=== PATIENT | male | born 1980 | race Caucasian/White ===

== ENCOUNTER 2017-06-13 10:42 | Emergency (ER) | payer SELFPAY ==
[2017-06-13] MEDS ORDERED: NA CHLORIDE 0.9% 1,000 ML ONE (12:03)
[2017-06-13 12:30] LABS: Absolute Lymphocytes (CBC) 2.1 K/uL (0.7-4.9); Absolute Monocytes 0.9 K/uL (0.1-1.3); Absolute Neutrophil 5.1 K/uL (1.8-8.0); Basophils % 0.5 % (0-1.3); Eosinophils % 1.1 % (0-4.4); Hematocrit 42.3 % (39.6-49.0); Lymphocytes % 25.9 % (15.3-44.8); MCV 82.5 fL (80-100); MPV 7.9 fL (7.6-11.3); Monocytes % 10.4 % (3.3-12.3); RBC Red Blood Cell Count 5.13 M/uL (4.33-5.43)
[2017-06-13 12:31] LABS: Bicarbonate 26 mEq/L (21-31); Glucose Level 94 mg/dL (65-120); Lipase 15 U/L (22-51); Potassium 4.2 mEq/L (3.6-5.0); Sodium Level 137 mEq/L (135-145)
[2017-06-13 12:37] LABS: ALT/SGPT 40 IU/L (10-60); AST/SGOT 31 IU/L (10-42); Albumin 4.6 g/dL (3.2-5.5); Alkaline Phosphatase 52 IU/L (42-121); Amylase Level 23 U/L (28-100); BUN Blood Urea Nitrogen 14 mg/dL (6-20); Bilirubin Direct 0.1 mg/dL (0-0.2); Bilirubin Total 0.6 mg/dL (0.3-1.2); Glomerular Filtration Rate > 90 mL/min (=/>90); Protein, Total 7.5 g/dL (6.0-8.3)
[2017-06-13 14:05] LABS: Urine Blood NEGATIVE (NEG); Urine Glucose NEGATIVE (NEG); Urine Protein NEGATIVE (NEG); Urine Specific Gravity 1.015 (1.005-1.030)
--- NOTE | 2017-06-13 14:22 | RAD REPORT ---
EXAM DESCRIPTION: CT - Abdomen Pelvis W Contrast - 06/13/2017 2:06 pm CLINICAL HISTORY: Persistent abdominal pain COMPARISON: CT study October 2012 TECHNIQUE: Biphasic, helical CT imaging of the abdomen and pelvis was performed following 100 ml non -ionic IV contrast. No oral contrast administered. All CT scans are performed using dose optimization technique as appropriate and may include automated exposure control or mA/KV adjustment according to patient size. FINDINGS: No suspicious findings in the lung bases. The liver, spleen, and pancreas show no suspicious findings. Gallbladder and biliary tree are also wi thout suspicious finding. Symmetric renal function is seen with no hydronephrosis or suspicious renal mass. No pyelonephritis o r acute renal parenchymal process. No bladder abnormality. No adrenal gland abnormality. No dilated bowel loops or bowel wall thickening. No appendicitis. No free air, free fluid or inflamma tory stranding. No hernia, mass or bulky lymphadenopathy. No suspicious bony findings. IMPRESSION: Contrast enhanced CT abdomen and pelvis showing no significant or suspicious finding.
--- NOTE | 2017-06-13 14:43 | ER ---
Nurse's Notes [facility] Name: Yobany Nava Age: 37 yrs Sex: Male : 1980 Arrival Date: 06/13/2017 Time: 10:46 Bed 16 Private MD: Diagnosis: Noninfective gastroenteritis and colitis, unspecified Presentation: 06/13 11:06 Presenting complaint: Patient states: generalized abd pain x [address] Tamez last ss who ordered for a CT, but pain is worsening and labs have not resulted yet. pt also c/o N/V/D. Transition of care: patient was not received from another setting of care. Onset of symptoms was June 06, 2017. Care prior to arrival: None. 11:06 Method Of Arrival: Ambulatory ss 11:06 Acuity: CL 3 ss Historical: - Allergies: 11:09 No Known Allergies; ss - Home Meds: 11:15 None [Active]; rb1 - PMHx: 11:09 Hypertension; ss - PSHx: 11:09 I\T\D; ss - Immunization history:: Adult Immunizations up to date. - Social history:: Smoking status: Patient uses tobacco products, chewing tobacco. Screenin:12 Abuse screen: Denies threats or abuse. Nutritional screening: No deficits noted. rb1 Tuberculosis screening: No symptoms or risk factors identified. Fall Risk None identified. Assessment: 11:12 General: Appears uncomfortable, obese, Behavior is calm, cooperative. Pain: Complains rb1 of pain in abdomen Pain currently is 10 out of 10 on a pain scale. Pain began x 1 week. Neuro: Level of Consciousness is awake, alert, obeys commands, Oriented to person, place, time, situation. Cardiovascular: Capillary refill < 3 seconds is brisk in bilateral fingers. Respiratory: Airway is patent Respiratory effort is even, unlabored, Respiratory pattern is regular, symmetrical. GI: Bowel sounds present X 4 quads. Abd is soft Abdomen is tender to palpation in right upper quadrant and left upper quadrant Reports bloody stool. : No signs and/or symptoms were reported regarding the genitourinary system. Derm: Skin is pink, warm \T\ dry. 12:13 Reassessment: Patient appears in no apparent distress at this time. No changes from rb1 previously documented assessment. 13:10 Reassessment: Patient appears in no apparent distress at this time. Patient and/or rb1 family updated on plan of care and expected duration. Pain level reassessed. Patient is alert, oriented x 3, equal unlabored respirations, skin warm/dry/pink. 14:00 Reassessment: Patient appears in no apparent distress at this time. No changes from rb1 previously documented assessment. at bedside. 14:40 Reassessment: Pt. and family requested to speak with someone in charge. I notified rb1 FLORESITA Curry and she went in to speak with the pt. and his family. Vital Signs: 11:09 BP 112 / 74; Pulse 86; Resp 16; Temp 97.6(O); Pulse Ox 98% on R/A; Weight 106.59 kg; ss Height 6 ft. 1 in. (185.42 cm); Pain 5/10; 12:00 BP 109 / 71; Pulse 50; Resp 17; Pulse Ox 96% on R/A; rb1 13:00 BP 112 / 78; Pulse 76; Resp 18; Pulse Ox 99% on R/A; rb1 14:00 BP 113 / 80; Pulse 91; Resp 16; Pulse Ox 99% ; rb1 11:09 Body Mass Index 31.00 (106.59 kg, 185.42 cm) ED Course: 10:46 Patient arrived in ED. sb2 10:59 Leah Shanks [facility]-C [facility]. kb 10:59 Param Joe MD is Attending Physician. kb 11:08 Triage completed. ss 11:09 Arm band placed on right wrist. ss 11:12 Patient has correct armband on for positive identification. Bed in low position. Call rb1 light in reach. Side rails up X 1. Pulse ox on. NIBP on. 11:39 Tika Cho, RN is Primary Nurse. rb1 11:45 Inserted saline lock: 22 gauge in right antecubital area, using aseptic technique. rb1 Blood collected. 14:05 CT Abd/Pelvis - W/Contrast In Process Unspecified. EDMS 15:00 No provider procedures requiring assistance completed. IV discontinued, intact, rb1 bleeding controlled, No redness/swelling at site. Pressure dressing applied. Administered Medications: 11:45 Drug: NS 0.9% 1000 ml Route: IV; Rate: 1000 ml; Site: right antecubital; rb1 12:47 Follow up: IV Status: Completed infusion rb1 Outcome: 14:43 Discharge ordered by . melany 15:00 Discharged to home with family. rb1 15:00 Condition: stable 15:00 Discharge instructions given to patient, Instructed on discharge instructions, follow up and referral plans. medication usage, Demonstrated understanding of instructions, follow-up care, medications, Prescriptions given X 2. 15:00 Discharged to home ambulatory. rb1 15:00 Patient left the ED. rb1 Signatures: Dispatcher [employer] EDNC Leah Shanks, EXTRUDING MACHINE OPERATOR-C EXTRUDING MACHINE OPERATOR-Antoinette Abarca RN RN Tika Cho RN RN rb1 Jennifer Collazo sb2 Corrections: (The following items were deleted from the chart) 15:11 15:09 Discharged to home ambulatory, rb1 rb1 15:14 15:11 Patient left the ED. rb1 rb1
--- NOTE | 2017-06-13 14:43 | EDPHYS ---
Physician Documentation [facility] Name: Yobany Nava Age: 37 yrs Sex: Male : 1980 Arrival Date: 06/13/2017 Time: 10:46 Bed 16 Private MD: ED Physician Param oJe HPI: 06/13 11:31 This 37 yrs old Male presents to ER via Ambulatory with complaints of kb Abdominal Pain. 11:31 The patient presents with abdominal pain that is diffuse. Onset: The symptoms/episode kb began/occurred last week. The symptoms radiate to back. Associated signs and symptoms: Pertinent positives: nausea, vomiting, and diarrhea. The symptoms are described as constant. Modifying factors: The symptoms are alleviated by nothing, the symptoms are aggravated by food. Severity of pain: At its worst the pain was moderate in the emergency department the pain is unchanged. The patient has not experienced similar symptoms in the past. The patient has been recently seen by a physician: a otr tanker truck driver, in the office, 1 week(s) ago, with similar presenting complaints, lab tests were done, still awaiting results. Historical: - Allergies: 11:09 No Known Allergies; ss - Home Meds: 11:15 None [Active]; rb1 - PMHx: 11:09 Hypertension; ss - PSHx: 11:09 I\T\D; ss - Immunization history:: Adult Immunizations up to date. - Social history:: Smoking status: Patient uses tobacco products, chewing tobacco. ROS: 11:31 Constitutional: Negative for fever, chills, and weight loss, Cardiovascular: Negative kb for chest pain, palpitations, and edema, Respiratory: Negative for shortness of breath, cough, wheezing, and pleuritic chest pain, Back: Negative for injury and pain, : Negative for injury, bleeding, discharge, and swelling, MS/Extremity: Negative for injury and deformity, Skin: Negative for injury, rash, and discoloration, Neuro: Negative for headache, weakness, numbness, tingling, and seizure. 11:31 Abdomen/GI: Positive for abdominal pain, nausea, vomiting, and diarrhea, Negative for constipation, abdominal cramps, abdominal distension, anorexia. Exam: 11:31 Constitutional: This is a well developed, well nourished patient who is awake, alert, kb and in no acute distress. Head/Face: Normocephalic, atraumatic. Chest/axilla: Normal chest wall appearance and motion. Nontender with no deformity. No lesions are appreciated. Cardiovascular: Regular rate and rhythm with a normal S1 and S2. No gallops, murmurs, or rubs. Normal PMI, no JVD. No pulse deficits. Respiratory: Lungs have equal breath sounds bilaterally, clear to auscultation and percussion. No rales, rhonchi or wheezes noted. No increased work of breathing, no retractions or nasal flaring. Abdomen/GI: Soft, non-tender, with normal bowel sounds. No distension or tympany. No guarding or rebound. No evidence of tenderness throughout. Back: No spinal tenderness. No costovertebral tenderness. Full range of motion. Skin: Warm, dry with normal turgor. Normal color with no rashes, no lesions, and no evidence of cellulitis. MS/ Extremity: Pulses equal, no cyanosis. Neurovascular intact. Full, normal range of motion. Neuro: Awake and alert, GCS 15, oriented to person, place, time, and situation. Cranial nerves II-XII grossly intact. Motor strength 5/5 in all extremities. Sensory grossly intact. Cerebellar exam normal. Normal gait. Vital Signs: 11:09 BP 112 / 74; Pulse 86; Resp 16; Temp 97.6(O); Pulse Ox 98% on R/A; Weight 106.59 kg; ss Height 6 ft. 1 in. (185.42 cm); Pain 5/10; 12:00 BP 109 / 71; Pulse 50; Resp 17; Pulse Ox 96% on R/A; rb1 13:00 BP 112 / 78; Pulse 76; Resp 18; Pulse Ox 99% on R/A; rb1 14:00 BP 113 / 80; Pulse 91; Resp 16; Pulse Ox 99% ; rb1 11:09 Body Mass Index 31.00 (106.59 kg, 185.42 cm) ss MDM: 11:13 Patient medically screened. kb 11:31 Data reviewed: vital signs, nurses notes. Data interpreted: Pulse oximetry: on room air kb is 98 %. Interpretation: normal. 14:42 Counseling: I had a detailed discussion with the patient and/or guardian regarding: the kb historical points, exam findings, and any diagnostic results supporting the discharge/admit diagnosis, lab results, radiology results, the need for outpatient follow up, a family practitioner, a otr tanker truck driver, to return to the emergency department if symptoms worsen or persist or if there are any questions or concerns that arise at home. 06/13 11:18 Order name: Amylase, Serum kb 06/13 11:18 Order name: Basic Metabolic Panel 06/13 11:18 Order name: CBC with Diff; Complete Time: 12:34 kb 06/13 11:18 Order name: Hepatic Function kb 06/13 11:18 Order name: Lipase; Complete Time: 12:38 kb 06/13 11:19 Order name: Amylase Level; Complete Time: 12:38 EDMS 06/13 11:18 Order name: IV Saline Lock; Complete Time: 12:49 kb 06/13 11:18 Order name: Labs collected and sent; Complete Time: 12:49 kb 06/13 11:18 Order name: Urine Dipstick-Ancillary (obtain specimen); Complete Time: 15:18 kb 06/13 11:19 Order name: Basic Metabolic Panel; Complete Time: 12:38 EDMS 06/13 11:19 Order name: Liver (Hepatic) Function; Complete Time: 12:38 EDMS 06/13 13:23 Order name: Urine Dipstick--Ancillary (enter results); Complete Time: 14:06 bd 06/13 13:32 Order name: CT Abd/Pelvis - W/Contrast; Complete Time: 14:26 kb Administered Medications: 11:45 Drug: NS 0.9% 1000 ml Route: IV; Rate: 1000 ml; Site: right antecubital; rb1 12:47 Follow up: IV Status: Completed infusion rb1 Disposition: 06/13/17 14:43 Discharged to Home. Impression: Noninfective gastroenteritis and colitis, unspecified. - Condition is Stable. - Discharge Instructions: Food Choices to Help Relieve Diarrhea, Adult, Viral Gastroenteritis. - Prescriptions for Bentyl 20 mg Oral Tablet - take 1 tablet by ORAL route every 6 hours As needed; 20 tablet. Zofran 4 mg Oral Tablet - take 1 tablet by ORAL route every 6 hours As needed; 20 tablet. - Medication Reconciliation Form, Thank You Letter, Antibiotic Education, Prescription Opioid Use, Work release form form. - Follow up: Emergency Department; When: As needed; Reason: Worsening of condition. Follow up: Private Physician; When: 2 - 3 days; Reason: Recheck today's complaints, Continuance of care, Re-evaluation by your physician. Addendum: 06/15/2017 06:14 Co-signature as Attending Physician, Param Joe MD. g s Signatures: Dispatcher [employer] Leah Seals, PUBLIC WORKS MANAGER-C PUBLIC WORKS MANAGER-Antoinette Abarca RN RN ss Barber, Rebecca, NGA SYLVESTER rb1 Param Joe MD MD
[2017-06-13 15:27] VITALS: TEMP 97.6
[2017-06-13 15:28] VITALS: BP 109/71; O2SAT 96
== END 2017-06-13 15:11 | disposition home or self-care (01) ==
LOC: ER 10:42
DX: K52.9 Noninfective gastroenteritis and colitis, unspecified (principal); I10 Essential (primary) hypertension; Z72.0 Tobacco use
CPT/HCPCS: 36415; 74177; 80048; 80076; 81003; 82150; 83690; 85025; 96360; 99284; J7030; Q9967

== ENCOUNTER 2021-09-06 07:01 | Day surgery (SDC) | payer BC ==
[2021-09-06] MEDS ORDERED: Ringers Lactate 1,000 ML IV ONE (07:34)
[2021-09-06] MEDS ORDERED: propofoL 200 MG/20 ML VIAL IV ONE ×3 (08:47→12:58)
[2021-09-06] MEDS ORDERED: LIDOCAINE 1% MPF 5 ML VIAL ONE ×2 (08:48→10:58)
[2021-09-06] MEDS ORDERED: MIDAZOLAM HCL 2 MG/2 ML INJ ONE (09:11)
[2021-09-06] MEDS ORDERED: FENTANYL CITR 100 MCG/2 ML ONE (09:28)
--- NOTE | 2021-09-06 09:59 | ENDO RPT ---
[address], [address] EGD PROCEDURE REPORT EXAM DATE: 09/06/2021 PATIENT NAME: Yobany Gunn MR#: [id number] BIRTHDATE: 1980 ATTENDING: Antolin Garza Dr STATUS: outpatient INDUSTRIAL RELATIONS MANAGER: Javier Foster RN INDICATIONS: The patient is a 41 yr old Male here for an EGD due to mid epigastric abdominal pain, left upper quadrant abdominal pain, right upper quadrant abdominal pain, nausea and vomiting, bloating, belching, dyspepsia, weight loss, and chronic unexplained diarrhea PROCEDURE PERFORMED: EGD with biopsy MEDICATIONS: Per Anesthesia. TOPICAL ANESTHETIC: none CONSENT: The patient understands the risks and benefits of the procedure and understands that these risks include, but are not limited to: sedation, allergic reaction, infection, perforation and/or bleeding. Alternative means of evaluation and treatment include, among others: physical exam, x-rays, and/or surgical intervention. The patient elects to proceed with this endoscopic procedure. DESCRIPTION OF PROCEDURE: During intra-op preparation period all mechanical medical equipment was checked for proper function. Hand hygiene and appropriate measures for infection prevention was taken. Procedure, possible complications, and alternatives including but not limited to the possibility of bleeding, perforation, tear, infection, sepsis, need for surgery, need for blood transfusion, and anesthesia related complications were explained to the patient. After the risks, benefits and alternatives of the procedure were thoroughly explained, Informed consent was verified, confirmed and timeout was successfully executed by the treatment team. The patient was placed in the left lateral position. The patient was anesthetized with topical anesthesia. Through the anesthetized oropharyngeal area, the scope was passed without any difficulty. The EC-3890Li ([id number]) and EG-[id number] ([id number]) endoscope was introduced through the mouth and advanced to the third portion of the duodenum. Retroflexed views revealed a small hiatal hernia. The gastroscope was then slowly withdrawn and removed. LA Class C esophagitis was found in the lower esophagus. An ulcer was found in the lower esophagus. A small hiatal hernia was found Mild Atrophic gastritis was found in the body and the antrum of the stomach. Multiple biopsies were obtained and sent to pathology. Small bowel biopsies obtained with history of chronic unexplained diarrhea. . ADVERSE EVENTS: There were no complications. IMPRESSIONS: 1. LA class C esophagitis in the lower esophagus 2. 3 mm clean-based ulcer in the lower esophagus 3. Small hiatal hernia 4. Mild atrophic gastritis in the body and the antrum of the stomach, s/p biopsies 5. Small bowel biopsies obtained with history of chronic unexplained diarrhea RECOMMENDATIONS: REPEAT EXAM: Antolin Garza Dr eSigned: Antolin Garza Dr 09/06/2021 9:58 AM cc: CPT CODES: ICD9 CODES: PATIENT NAME: Yobany Gunn MR#: [id number]
--- NOTE | 2021-09-06 10:16 | ENDO RPT ---
[address], [address] COLONOSCOPY PROCEDURE REPORT EXAM DATE: 09/06/2021 PATIENT NAME: Yobany Gunn MR #: [id number] BIRTHDATE: 1980 ATTENDING: Antolin Garza Dr STATUS: outpatient DEPARTMENT DIRECTOR: Javier Foster RN INDICATIONS: The patient is a 41 yr old Male here for a colonoscopy due to hematochezia, RLQ/LLQ/periumbilical abdominal pain, weight loss, change in bowel habits, and unexplained chronic diarrhea PROCEDURE PERFORMED: Colonoscopy with biopsy - cold polypectomy MEDICATIONS: Per Anesthesia. ESTIMATED BLOOD LOSS: None CONSENT: The patient understands the risks and benefits of the procedure and understands that these risks include, but are not limited to: sedation, allergic reaction, infection, perforation and/or bleeding. Alternative means of evaluation and treatment include, among others: physical exam, x-rays, and/or surgical intervention. The patient elects to proceed with this endoscopic procedure. DESCRIPTION OF PROCEDURE: During intra-op preparation period all mechanical medical equipment was checked for proper function. Hand hygiene and appropriate measures for infection prevention was taken. Procedure, possible complications, alternatives including, but not limited to possibility of bleeding, perforation, tear, infection, sepsis, need for surgery, need for blood transfusion, were explained to the patient. After the risks, benefits and alternatives of the procedure were thoroughly explained, Informed consent was verified, confirmed and timeout was successfully executed by the treatment team. The patient was placed in the left lateral position. A digital rectal exam was performed and revealed external hemorrhoids. After appropriate level of anesthesia, the scope was passed. The EC-3890Li ([id number]) and EG-[id number] ([id number]) endoscope was introduced through the anus and advanced to the terminal ileum which was intubated for a short distance. The quality of the prep was fair. The instrument was then slowly withdrawn as the colon was fully examined. Scope withdrawal time was 9 minutes. COLON FINDINGS: A smooth sessile polyp measuring 6 mm in size was found in the distal transverse colon. A polypectomy was performed with cold forceps. Moderate sized internal and external hemorrhoids were found. Retroflexed views revealed medium hemorrhoids. The scope was then completely withdrawn from the patient and the procedure terminated. ADVERSE EVENTS: There were no complications. IMPRESSIONS: 1. 6 mm sessile polyp in the distal transverse colon; polypectomy was performed with cold forceps 2. Moderate sized internal and external hemorrhoids 3. Intubation to terminal ileum RECOMMENDATIONS: 1. await biopsy results 2. avoid NSAIDS for 2 weeks RECALL: Return in 3 year(s) for Colonoscopy. Antolin Garza Dr eSigned: Antolin Garza Dr 09/06/2021 10:15 AM cc: CPT CODES: ICD9 CODES: PATIENT NAME: Yobany Gunn MR#: [id number]
--- NOTE | 2021-09-06 10:30 | ENDO RPT ---
[address], [address] EGD PROCEDURE REPORT EXAM DATE: 09/06/2021 PATIENT NAME: Yobany Gunn MR#: [id number] BIRTHDATE: 1980 ATTENDING: Antolin Garza Dr STATUS: outpatient LIFT TRUCK MECHANIC: Javier Foster RN INDICATIONS: The patient is a 41 yr old Male here for an EGD due to mid epigastric abdominal pain, left upper quadrant abdominal pain, right upper quadrant abdominal pain, nausea and vomiting, bloating, belching, dyspepsia, weight loss, and chronic unexplained diarrhea PROCEDURE PERFORMED: EGD with biopsy MEDICATIONS: Per Anesthesia. TOPICAL ANESTHETIC: none CONSENT: The patient understands the risks and benefits of the procedure and understands that these risks include, but are not limited to: sedation, allergic reaction, infection, perforation and/or bleeding. Alternative means of evaluation and treatment include, among others: physical exam, x-rays, and/or surgical intervention. The patient elects to proceed with this endoscopic procedure. DESCRIPTION OF PROCEDURE: During intra-op preparation period all mechanical medical equipment was checked for proper function. Hand hygiene and appropriate measures for infection prevention was taken. Procedure, possible complications, and alternatives including but not limited to the possibility of bleeding, perforation, tear, infection, sepsis, need for surgery, need for blood transfusion, and anesthesia related complications were explained to the patient. After the risks, benefits and alternatives of the procedure were thoroughly explained, Informed consent was verified, confirmed and timeout was successfully executed by the treatment team. The patient was placed in the left lateral position. The patient was anesthetized with topical anesthesia. Through the anesthetized oropharyngeal area, the scope was passed without any difficulty. The EC-3890Li ([id number]) and EG-[id number] ([id number]) endoscope was introduced through the mouth and advanced to the third portion of the duodenum. Retroflexed views revealed a small hiatal hernia. The gastroscope was then slowly withdrawn and removed. LA Class C esophagitis was found in the lower esophagus. An ulcer was found in the lower esophagus. A small hiatal hernia was found Mild Atrophic gastritis was found in the body and the antrum of the stomach. Multiple biopsies were obtained and sent to pathology. Small bowel biopsies obtained with history of chronic unexplained diarrhea. . ADVERSE EVENTS: There were no complications. IMPRESSIONS: 1. LA class C esophagitis in the lower esophagus 2. 3 mm clean-based ulcer in the lower esophagus 3. Small hiatal hernia 4. Mild atrophic gastritis in the body and the antrum of the stomach, s/p biopsies 5. Small bowel biopsies obtained with history of chronic unexplained diarrhea RECOMMENDATIONS: 1. await biopsy results 2. acid suppression therapy REPEAT EXAM: Antolin Garza Dr eSigned: Antolin Garza Dr 09/06/2021 10:29 AM Revised: 09/06/2021 10:29 AM cc: Antolin Hernandez CPT CODES: ICD9 CODES: PATIENT NAME: Yobany Gunn MR#: [id number]
--- NOTE | 2021-09-06 10:31 | ENDO RPT ---
[address], [address] COLONOSCOPY PROCEDURE REPORT EXAM DATE: 09/06/2021 PATIENT NAME: Yobany Gunn MR #: [id number] BIRTHDATE: 1980 ATTENDING: Antolin Garza Dr STATUS: outpatient TROLLEY OPERATOR: Javier Foster RN INDICATIONS: The patient is a 41 yr old Male here for a colonoscopy due to hematochezia, RLQ/LLQ/periumbilical abdominal pain, weight loss, change in bowel habits, and unexplained chronic diarrhea PROCEDURE PERFORMED: Colonoscopy with biopsy - cold polypectomy MEDICATIONS: Per Anesthesia. ESTIMATED BLOOD LOSS: None CONSENT: The patient understands the risks and benefits of the procedure and understands that these risks include, but are not limited to: sedation, allergic reaction, infection, perforation and/or bleeding. Alternative means of evaluation and treatment include, among others: physical exam, x-rays, and/or surgical intervention. The patient elects to proceed with this endoscopic procedure. DESCRIPTION OF PROCEDURE: During intra-op preparation period all mechanical medical equipment was checked for proper function. Hand hygiene and appropriate measures for infection prevention was taken. Procedure, possible complications, alternatives including, but not limited to possibility of bleeding, perforation, tear, infection, sepsis, need for surgery, need for blood transfusion, were explained to the patient. After the risks, benefits and alternatives of the procedure were thoroughly explained, Informed consent was verified, confirmed and timeout was successfully executed by the treatment team. The patient was placed in the left lateral position. A digital rectal exam was performed and revealed external hemorrhoids. After appropriate level of anesthesia, the scope was passed. The EC-3890Li ([id number]) and EG-[id number] ([id number]) endoscope was introduced through the anus and advanced to the terminal ileum which was intubated for a short distance. The quality of the prep was fair. The instrument was then slowly withdrawn as the colon was fully examined. Scope withdrawal time was 9 minutes. COLON FINDINGS: A smooth sessile polyp measuring 6 mm in size was found in the distal transverse colon. A polypectomy was performed with cold forceps. Moderate sized internal and external hemorrhoids were found. Retroflexed views revealed medium hemorrhoids. The scope was then completely withdrawn from the patient and the procedure terminated. ADVERSE EVENTS: There were no complications. IMPRESSIONS: 1. 6 mm sessile polyp in the distal transverse colon; polypectomy was performed with cold forceps 2. Moderate sized internal and external hemorrhoids 3. Intubation to terminal ileum RECOMMENDATIONS: 1. await biopsy results 2. avoid NSAIDS for 2 weeks RECALL: Return in 3 year(s) for Colonoscopy. Antolin Garza Dr eSigned: Antolin Garza Dr 09/06/2021 10:30 AM Revised: 09/06/2021 10:30 AM cc: Antolin Hernandez CPT CODES: ICD9 CODES: PATIENT NAME: Yobany Gunn MR#: [id number]
--- NOTE | 2021-09-06 10:52 | ENDO RPT ---
[address], [address] EGD PROCEDURE REPORT EXAM DATE: 09/06/2021 PATIENT NAME: Yobany Gunn MR#: [id number] BIRTHDATE: 1980 ATTENDING: Antolin Garza Dr STATUS: outpatient CALL OUT OPERATOR: Javier Foster RN INDICATIONS: The patient is a 41 yr old Male here for an EGD due to mid epigastric abdominal pain, left upper quadrant abdominal pain, right upper quadrant abdominal pain, nausea and vomiting, bloating, belching, dyspepsia, weight loss, and chronic unexplained diarrhea PROCEDURE PERFORMED: EGD with biopsy MEDICATIONS: Per Anesthesia. TOPICAL ANESTHETIC: none CONSENT: The patient understands the risks and benefits of the procedure and understands that these risks include, but are not limited to: sedation, allergic reaction, infection, perforation and/or bleeding. Alternative means of evaluation and treatment include, among others: physical exam, x-rays, and/or surgical intervention. The patient elects to proceed with this endoscopic procedure. DESCRIPTION OF PROCEDURE: During intra-op preparation period all mechanical medical equipment was checked for proper function. Hand hygiene and appropriate measures for infection prevention was taken. Procedure, possible complications, and alternatives including but not limited to the possibility of bleeding, perforation, tear, infection, sepsis, need for surgery, need for blood transfusion, and anesthesia related complications were explained to the patient. After the risks, benefits and alternatives of the procedure were thoroughly explained, Informed consent was verified, confirmed and timeout was successfully executed by the treatment team. The patient was placed in the left lateral position. The patient was anesthetized with topical anesthesia. Through the anesthetized oropharyngeal area, the scope was passed without any difficulty. The EC-3890Li ([id number]) and EG-[id number] ([id number]) endoscope was introduced through the mouth and advanced to the third portion of the duodenum. Retroflexed views revealed a small hiatal hernia. The gastroscope was then slowly withdrawn and removed. LA Class C esophagitis was found in the lower esophagus. An ulcer was found in the lower esophagus. A small hiatal hernia was found Mild Atrophic gastritis was found in the body and the antrum of the stomach. Multiple biopsies were obtained and sent to pathology. Small bowel biopsies obtained with history of chronic unexplained diarrhea. . ADVERSE EVENTS: There were no complications. IMPRESSIONS: 1. LA class C esophagitis in the lower esophagus 2. 3 mm clean-based ulcer in the lower esophagus 3. Small hiatal hernia 4. Mild atrophic gastritis in the body and the antrum of the stomach, s/p biopsies 5. Small bowel biopsies obtained with history of chronic unexplained diarrhea RECOMMENDATIONS: 1. await biopsy results 2. acid suppression therapy REPEAT EXAM: Antolin Garza Dr eSigned: Antolin Garza Dr 09/06/2021 10:51 AM Revised: 09/06/2021 10:51 AM cc: Antolin Hernandez CPT CODES: ICD9 CODES: PATIENT NAME: Yobany Gunn MR#: [id number]
--- NOTE | 2021-09-06 10:53 | ENDO RPT ---
[address], [address] COLONOSCOPY PROCEDURE REPORT EXAM DATE: 09/06/2021 PATIENT NAME: Yobany Gunn MR #: [id number] BIRTHDATE: 1980 ATTENDING: Antolin Garza Dr STATUS: outpatient BEAN SNAPPER: Javier Foster RN INDICATIONS: The patient is a 41 yr old Male here for a colonoscopy due to hematochezia, RLQ/LLQ/periumbilical abdominal pain, weight loss, change in bowel habits, and unexplained chronic diarrhea PROCEDURE PERFORMED: Colonoscopy with biopsy - cold polypectomy MEDICATIONS: Per Anesthesia. ESTIMATED BLOOD LOSS: None CONSENT: The patient understands the risks and benefits of the procedure and understands that these risks include, but are not limited to: sedation, allergic reaction, infection, perforation and/or bleeding. Alternative means of evaluation and treatment include, among others: physical exam, x-rays, and/or surgical intervention. The patient elects to proceed with this endoscopic procedure. DESCRIPTION OF PROCEDURE: During intra-op preparation period all mechanical medical equipment was checked for proper function. Hand hygiene and appropriate measures for infection prevention was taken. Procedure, possible complications, alternatives including, but not limited to possibility of bleeding, perforation, tear, infection, sepsis, need for surgery, need for blood transfusion, were explained to the patient. After the risks, benefits and alternatives of the procedure were thoroughly explained, Informed consent was verified, confirmed and timeout was successfully executed by the treatment team. The patient was placed in the left lateral position. A digital rectal exam was performed and revealed external hemorrhoids. After appropriate level of anesthesia, the scope was passed. The EC-3890Li ([id number]) and EG-[id number] ([id number]) endoscope was introduced through the anus and advanced to the terminal ileum which was intubated for a short distance. The quality of the prep was fair. The instrument was then slowly withdrawn as the colon was fully examined. Scope withdrawal time was 9 minutes. COLON FINDINGS: A smooth sessile polyp measuring 6 mm in size was found in the distal transverse colon. A polypectomy was performed with cold forceps. Random biopsies of the colon / rectum obtained with history of chronic unexplained diarrhea. Moderate sized internal and external hemorrhoids were found. Retroflexed views revealed medium hemorrhoids. The scope was then completely withdrawn from the patient and the procedure terminated. ADVERSE EVENTS: There were no complications. IMPRESSIONS: 1. 6 mm sessile polyp in the distal transverse colon; polypectomy was performed with cold forceps 2. Moderate sized internal and external hemorrhoids 3. Intubation to terminal ileum RECOMMENDATIONS: 1. await biopsy results 2. avoid NSAIDS for 2 weeks RECALL: Return in 3 year(s) for Colonoscopy. Antolin Garza Dr eSigned: Antolin Garza Dr 09/06/2021 10:53 AM Revised: 09/06/2021 10:53 AM cc: Antolin Hernandez CPT CODES: ICD9 CODES: PATIENT NAME: Yobany Gunn MR#: [id number]
--- NOTE | 2021-09-06 11:14 | ENDO RPT ---
[address], [address] COLONOSCOPY PROCEDURE REPORT EXAM DATE: 09/06/2021 PATIENT NAME: Yobany Gunn MR #: [id number] BIRTHDATE: 1980 ATTENDING: Antolin Garza Dr STATUS: outpatient HATCH BOSS: Javier Foster RN INDICATIONS: The patient is a 41 yr old Male here for a colonoscopy due to hematochezia, RLQ/LLQ/periumbilical abdominal pain, weight loss, change in bowel habits, and unexplained chronic diarrhea PROCEDURE PERFORMED: Colonoscopy with biopsy - cold polypectomy MEDICATIONS: Per Anesthesia. ESTIMATED BLOOD LOSS: None CONSENT: The patient understands the risks and benefits of the procedure and understands that these risks include, but are not limited to: sedation, allergic reaction, infection, perforation and/or bleeding. Alternative means of evaluation and treatment include, among others: physical exam, x-rays, and/or surgical intervention. The patient elects to proceed with this endoscopic procedure. DESCRIPTION OF PROCEDURE: During intra-op preparation period all mechanical medical equipment was checked for proper function. Hand hygiene and appropriate measures for infection prevention was taken. Procedure, possible complications, alternatives including, but not limited to possibility of bleeding, perforation, tear, infection, sepsis, need for surgery, need for blood transfusion, were explained to the patient. After the risks, benefits and alternatives of the procedure were thoroughly explained, Informed consent was verified, confirmed and timeout was successfully executed by the treatment team. The patient was placed in the left lateral position. A digital rectal exam was performed and revealed external hemorrhoids. After appropriate level of anesthesia, the scope was passed. The EC-3890Li ([id number]) and EG-2990i ([id number]) endoscope was introduced through the anus and advanced to the terminal ileum which was intubated for a short distance. The quality of the prep was fair. The instrument was then slowly withdrawn as the colon was fully examined. Scope withdrawal time was 9 minutes. COLON FINDINGS: A smooth sessile polyp measuring 6 mm in size was found in the distal transverse colon. A polypectomy was performed with cold forceps. Random biopsies of the terminal ileum / right colon / left colon / rectum obtained with history of chronic unexplained diarrhea. Moderate sized internal and external hemorrhoids were found. Retroflexed views revealed medium hemorrhoids. The scope was then completely withdrawn from the patient and the procedure terminated. ADVERSE EVENTS: There were no complications. IMPRESSIONS: 1. 6 mm sessile polyp in the distal transverse colon; polypectomy was performed with cold forceps 2. Random biopsies of the terminal ileum / right colon / left colon / rectum obtained with history of chronic unexplained diarrhea 3. Moderate sized internal and external hemorrhoids 4. Intubation to terminal ileum RECOMMENDATIONS: 1. await biopsy results 2. avoid NSAIDS for 2 weeks RECALL: Return in 3 year(s) for Colonoscopy. Antolin Garza Dr eSigned: Antolin Garza Dr 09/06/2021 11:13 AM Revised: 09/06/2021 11:13 AM cc: Antolin Hernandez CPT CODES: ICD9 CODES: PATIENT NAME: Yobany Gunn MR#: [id number]
[2021-09-06 12:10] VITALS: TEMP 97.5
[2021-09-06 12:11] VITALS: O2SAT 100
[2021-09-06 12:13] VITALS: BP 130/62
== END 2021-09-06 11:50 | disposition home or self-care (01) ==
LOC: OR 07:01
PROVIDERS: ATTEND Internal Medicine Gastroenterology
PROC: 0DBF8ZX Excision of Right Large Intestine, Via Natural or Artificial Opening Endoscopic, Diagnostic (ICD-10-PCS; 2021-09-06)
PROC: 0DBG8ZX Excision of Left Large Intestine, Via Natural or Artificial Opening Endoscopic, Diagnostic (ICD-10-PCS; 2021-09-06)
PROC: 0DBB8ZX Excision of Ileum, Via Natural or Artificial Opening Endoscopic, Diagnostic (ICD-10-PCS; principal; 2021-09-06 08:15)
PROC: 0DBP8ZX Excision of Rectum, Via Natural or Artificial Opening Endoscopic, Diagnostic (ICD-10-PCS; 2021-09-06 08:15)
DX: R19.4 Change in bowel habit (principal); R19.7 Diarrhea, unspecified; K92.1 Melena; R10.10 Upper abdominal pain, unspecified; R10.13 Epigastric pain; R14.0 Abdominal distension (gaseous); R14.2 Eructation; Z20.822 Contact with and (suspected) exposure to COVID-19
CPT/HCPCS: 88312; 88305 ×2; 45380; U0003; J2704 ×3; J2250; J3010; J7120

== ENCOUNTER 2023-05-14 07:25 | Day surgery (SDC) | payer BC ==
--- NOTE | 2023-05-13 14:43 | EKG ---
Test Date: 2023-05-09 Test Time: 16:21:25 Golf Ball Inspector: CRISEDLA MEASUREMENT RESULTS: Intervals: Rate: 76 MT: 162 QRSD: 92 QT: 376 QTc: 423 [place]: P: 55 MT: 162 QRS: 63 T: -5 INTERPRETIVE STATEMENTS: Normal sinus rhythm Abnormal QRS-T angle, consider primary T wave abnormality Abnormal ECG No previous ECG available for comparison Electronically Signed On 05-13-23 14:31:53 ELEMENTARY ASSISTANT PRINCIPAL by Vernon Argueta
[2023-05-14] MEDS: Ringers Lactate 1,000 ML IV ONE (07:40)
[2023-05-14] MEDS ORDERED: propofoL 200 MG/20 ML VIAL IV ONE ×2 (08:26→09:03)
[2023-05-14] MEDS ORDERED: LIDOCAINE 1% MPF 5 ML VIAL ONE (08:26)
[2023-05-14 10:58] VITALS: BP 118/62; TEMP 98.1; O2SAT 100
== END 2023-05-14 10:27 | disposition home or self-care (01) ==
LOC: OR 07:25
PROVIDERS: ATTEND Internal Medicine Gastroenterology
PROC: 0DBE8ZX Excision of Large Intestine, Via Natural or Artificial Opening Endoscopic, Diagnostic (ICD-10-PCS; principal; 2023-05-14 08:30)
DX: K92.1 Melena (principal); R19.7 Diarrhea, unspecified; R10.9 Unspecified abdominal pain; K64.8 Other hemorrhoids; K64.4 Residual hemorrhoidal skin tags; Z86.010 Personal history of colon polyps
CPT/HCPCS: 93005; 88305; 45380; J2704 ×2; J2001; J7120

== ENCOUNTER → 2023-06-04 | Emergency (ER) | payer BC ==
[~2023-06-04] MED LIST: FAMOTIDINE 20 MG/2 ML VIAL IV ONE; KETOROLAC 30 MG/ML INJ ONE; MORPHINE 4 MG/ML SYR ONE; NA CHLORIDE 0.9% 1,000 ML ONE; ONDANSETRON 4 MG/2 ML VIAL ONE
--- OUTSIDE RECORDS SUMMARY | 2023-06-04 10:02 | XMS REPORT | Continuity of Care Document ---
Author Name Unknown Address [address] [facility] [address] [place] [address] [facility] thconnect Address [address] [facility]. [address] [place] [address] Care Team Providers Care Curtain Hemmer Automatic Name Role Phone Pcp, Patient Does Not Have A Primary Care Physic lesley ARINA BURROWS Attending Clinician Unavailable Arina Eli Attending Clinician Unknown, Attending Attending Clinician Unavailab le Doctor Unassigned, [place] Attending Clinician U navailOdette Estevez Attending Clinician Payers Payer Name Policy Type Policy Number Effective Date Expirati on Date Source [facility] [id number] 2021 00:00:00 Problems Condition Name Condition Details Condition Category Status Onset Date Resolution Date Last Treatment Date Treating Clinician Comments Source No known active problems No known active problems Disease [facility] Allergies, Adverse Reactions, Alerts Allergy Name Allergy Type Status Severity Reaction(s) Onset Date Inactive Date Treating Clinician Comments Source CLINDAMY MER DRUG INGREDI Active Unknown-Cmnt 04-17 00:00: 00 [facility] Clindamy mer Drug Allergy Active Unknown - See comments 04-17 00:00: 00 [facility] NO KNOWN ALLERGIE S Drug Class Active [facility] Social History Social Habit Start Date Stop Date Quantity Comments Source Exposure to SARS-CoV-2 (event) Not sure [facility] Sex Assigned At 1980 00:00:00 1980 00:00:00 [facility] Smoking Status Start Date Stop Date Source Tobacco smoking consumption unknown [facility] Medications Ordered Medication Name Filled Medication Name Start Date Stop Date Current Medication? Ordering Clinician Indication Dosage Frequency Signature (SIG) Comments Components Source maalox:diph enhydrAMINE :lidocaine 2 % viscous 1:1:1 ([facility]) oral suspension 15 mL 11-18 20:15: 00 11-18 20:07 :00 No 15mL 15 mL, Oral, ONCE, 1 dose, 11/18/20 at 1515, Routine [facility] benzonatate (TESSALON PERLES) capsule 100 mg 11-18 20:15: 00 11-18 20:07 :00 No 100mg 100 mg, Oral, ONCE, 1 dose, 11/18/20 at 1515, Routine [facility] albuterol (VENTOLIN) inhaler 6 Puff 11-18 20:15: 00 11-18 20:34 :00 No 6{puff} 6 Puff, Inhalation , ONCE, 1 dose, 11/18/20 at 1515, SAMANTHA [facility] maalox:diph enhydrAMINE :lidocaine 2 % viscous 1:1:1 ([facility]) oral suspension 15 mL 11-18 20:15: 00 11-18 20:07 :00 No 15mL 15 mL, Oral, ONCE, 1 dose, 11/18/20 at 1515, Routine [facility] benzonatate (TESSALON PERLES) capsule 100 mg 11-18 20:15: 00 11-18 20:07 :00 No 100mg 100 mg, Oral, ONCE, 1 dose, 11/18/20 at 1515, Routine [facility] albuterol (VENTOLIN) inhaler 6 Puff 11-18 20:15: 00 11-18 20:34 :00 No 6{puff} 6 Puff, Inhalation , ONCE, 1 dose, Sat11/18/20 at 1515, SAMANTHA [facility] benzonatate 100 mg capsule 11-18 00:00: 00 Yes [id number] 100mg Take 1 capsule by mouth 3 (three) times daily as needed for Cough. [facility] maalox:diph enhydrAMINE :lidocaine 2 % viscous 1:1:1 11-18 00:00: 00 Yes [id number] 10mL Take 10 mL by mouth as needed for Oral mucositis. [facility] benzonatate 100 mg capsule 11-18 00:00: 00 Yes [id number] 100mg Take 1 capsule by mouth 3 (three) times daily as needed for Cough. [facility] maalox:diph enhydrAMINE :lidocaine 2 % viscous 1:1:1 11-18 00:00: 00 Yes [id number] 10mL Take 10 mL by mouth as needed for Oral mucositis. [facility] benzonatate 100 mg capsule 11-18 00:00: 00 Yes [id number] 100mg Take 1 capsule by mouth 3 (three) times daily as needed for Cough. [facility] maalox:diph enhydrAMINE :lidocaine 2 % viscous 1:1:1 11-18 00:00: 00 Yes [id number] 10mL Take 10 mL by mouth as needed for Oral mucositis. [facility] benzonatate 100 mg capsule 11-18 00:00: 00 Yes [id number] 100mg Take 1 capsule by mouth 3 (three) times daily as needed for Cough. [facility] maalox:diph enhydrAMINE :lidocaine 2 % viscous 1:1:1 11-18 00:00: 00 Yes [id number] 10mL Take 10 mL by mouth as needed for Oral mucositis. [facility] sulfamethox azole-trime thoprim 800-160 mg per tablet 07-10 00:00: 00 Yes 1{tbl} Take 1 tablet by mouth every 12 (twelve) hours. [facility] mupirocin (BACTROBAN) 2 % cream 07-10 00:00: 00 Yes Apply to affected area(s) 3 (three) times daily. [facility] sulfamethox azole-trime thoprim 800-160 mg per tablet 07-10 00:00: 00 Yes 1{tbl} Take 1 tablet by mouth every 12 (twelve) hours. [facility] mupirocin (BACTROBAN) 2 % cream 07-10 00:00: 00 Yes Apply to affected area(s) 3 (three) times daily. [facility] sulfamethox azole-trime thoprim 800-160 mg per tablet 07-10 00:00: 00 Yes 1{tbl} Take 1 tablet by mouth every 12 (twelve) hours. [facility] mupirocin (BACTROBAN) 2 % cream 07-10 00:00: 00 Yes Apply to affected area(s) 3 (three) times daily. [facility] sulfamethox azole-trime thoprim 800-160 mg per tablet 07-10 00:00: 00 Yes 1{tbl} Take 1 tablet by mouth every 12 (twelve) hours. [facility] mupirocin (BACTROBAN) 2 % cream 07-10 00:00: 00 Yes Apply to affected area(s) 3 (three) times daily. [facility] Vital Signs Vital Name Observation Time Observation Value Comments S tara Systolic blood pressure 2022-04-23 23:52:00 137 mm[Hg] [facility] Diastolic blood pressure 2022-04-23 23:52:00 81 mm[Hg] [facility] Heart rate 2022-04-23 23:51:00 72 [facility] temperature 2022-04-23 23:51:00 36.67 Joseline [facility] Respiratory rate 2022-04-23 23:51:00 18 /min [facility] Body height 2022-04-23 23:51:00 185.4 cm [facility] Body weight 2022-04-23 23:51:00 110.904 kg [facility] BMI 2022-04-23 23:51:00 32.26 kg/m2 [facility] Oxygen saturation in Arterial blood by Pulse oximetry 2022-04-23 23:51:00 97 /min [facility] Systolic blood pressure 2020-11-18 17:26:18 134 mm[Hg] [facility] Diastolic blood pressure 2020-11-18 17:26:18 75 mm[Hg] [facility] Heart rate 2020-11-18 17:26:18 77 /min [facility] Body temperature 2020-11-18 17:26:18 37 Joseline [facility] Respiratory rate 2020-11-18 17:26:18 18 /min [facility] Body height 2020-11-18 17:23:00 185.4 cm [facility] Body weight 2020-11-18 17:23:00 104.327 kg [facility] BMI 2020-11-18 17:23:00 30.34 kg/m2 [facility] Oxygen saturation in Arterial blood by Pulse oximetry 2020-11-18 17:23:00 99 /min [facility] Procedures Procedure Date / Time Performed Performing Clinicia n Source ASSIGNMENT OF BENEFITS 2022-04-23 23:34:48 Docto r Unassigned, [place] [facility] COVID-19 (ID NOW RAPID TESTING) 2020-11-18 20:06:00 Odette Orosco [facility] XR CHEST 1 VW 2020-11-18 19:22:29 Odette Orosco [facility] NOTICE OF PRIVACY PRACTICES 2020-11-18 17:17:13 Doctor Unassigned, [place] [facility] CONSENT/REFUSAL FOR DIAGNOSIS AND TREATMENT 2020-11-18 17:16:54 Doctor Unassigned, [place] [facility] Encounters Start Date/Time End Date/Time Encounter Type Admission Type Attending Clinicians Care Facility Care Department Encounter ID Source 2022-04-23 17:20:00 2022-04-23 18:08:54 Outpatient R ARINA BURROWS [facility] [id number] [facility] 2022-04-23 17:20:00 2022-04-23 18:08:54 Urgent Care Arina Burrows Unknown, Attending [facility] [id number] [facility] 2022-04-23 00:00:00 2022-04-23 00:00:00 Orders Only Doctor Unassigned, [place] [facility] [id number] [facility] 2020-11-18 13:00:00 2020-11-18 16:46:00 Emergency Odette Orosco [facility] [id number] [facility] 2020-11-18 12:16:00 2020-11-18 12:16:00 Emergency X [facility] ERT [id number] [facility] Results Test Description Test Time Test Comments Results Result Co mments Source [facility] NOW RAPID TESTING)2020-11-18 20:33:46* Test Item Value Reference Range Interpretation Comme nts SARS-CoV-2 Rapid ID NOW (test code = 03054-1) Not Detected Not Detected LUDWIN (test code = LUDWIN) ID NOW COVID-19 As say is an isothermal nucleic acid amplification test intended for the qualitative detection of nucleic acid from SARS-CoV-2 viral RNA in nasopharyngeal (ACCOUNTING RECONCILIATION CLERK) specimens. It is used under Emergency Use Authorization (EUA) by FDA. The limit of detection (LOD) of the assay is 125 Genome Equivalents/mL. A positive result is indicative of the presence of SARS-CoV-2 RNA. ?Clinical correlation with patient history and other diagnostic information is necessary to determine patient infection status. A negative (Not Detected) result does not preclude SARS-CoV-2 infection. In patients with clinical symptoms and other tests that are consistent with SARS-CoV-2 infection, negative results should be treated as presumptive negative and a new specimen should be tested with alternative PCR molecular test. Invalid: Please collect a new specimen for repeat patient testing if clinically indicated. Lab Interpretation (test code = 06925-8) Normal [facility] 1 [id number] 19:56:52No radiographic evidence of acute cardiopulmonary process. Aníbal Malone MD., have reviewed this study and agree withthe above report.EXAM: XR CHEST 1 VW COMPARISON: None. HISTORY: 40-year-old male presenting with shortness of breath. FINDINGS: Lungs: The lung volumes are ?normal. Nofocal opacities. No pleuralabnormalities are detected. Heart/Mediastinum: The cardiac silhouette appears normal accounting fortechnique. Bones and soft tissues: No focal osseous lesions. Degenerativechanges ofthe right acromioclavicular joint. [facility], Radiant Results Inft User - 11/18/2020 2:57 PM CDT EXAM: XR CHEST 1 VWCOMPARISON: None.HISTORY: 40-year-old male presenting with shortness of breath.FINDINGS:Lungs: The lung volumes are normal. No focal opacities. No pleuralabnormalities are detected.Heart/Mediastinum: The cardiac silhouette appears normal accounting fortechnique.Bones and soft tissues: No focal osseous lesions. Degenerative changes ofthe right acromioclavicular joint.IMPRESSIONNo radiographic evidence of acute cardiopulmonary process.Aníbal Malone MD., have reviewed this study and agree withthe abovereport.[facility] [id number] 19:56:52No radiographic evidence of acute cardiopulmonary process. Aníbal Malone MD., have reviewed this study and agree withthe above report.EXAM: XR CHEST 1 VW COMPARISON: None. HISTORY: 40-year-old male presenting with shortness of breath. FINDINGS: Lungs: The lung volumes are ?normal. Nofocal opacities. No pleuralabnormalities are detected. Heart/Mediastinum: The cardiac silhouette appears normal accounting fortechnique. Bones and soft tissues: No focal osseous lesions. Degenerative changes ofthe right acromioclavicular joint. [facility], Radiant Results Inft User - 11/18/2020 2:57 PM CDT EXAM: XR CHEST 1 VWCOMPARISON: None.HISTORY: 40-year-old male presenting with shortness of breath.FINDINGS:Lungs: The lung volumes are normal. No focal opacities. No pleuralabnormalities are detected.Heart/Mediastinum: The cardiac silhouette appears normal accounting fortechnique.Bones and soft tissues: No focal osseous lesions. Degenerative changes ofthe right acromioclavicular joint.IMPRESSIONNo radiographic evidence of acute cardio pulmonary process.IAníbal MD., have reviewed this study and agree withthe abovereport.[facility]
--- NOTE | 2023-06-04 11:11 | RAD REPORT ---
EXAM DESCRIPTION: US - Abdomen Exam Limited - 06/04/2023 10:43 am CLINICAL HISTORY: GB eval;Abd pain COMPARISON: CTSTONE PROTOCOL dated 11/10/2012; Small Bowel Series dated 10/23/2021 TECHNIQUE: Sonographic grayscale and color flow images of the right upper abdominal quadrant were o btained. FINDINGS: The gallbladder demonstrates no gallstones. No pericholecystic fluid or gallbladder wall t hickening. The common bile duct is normal measuring 3mm. The liver demonstrates no findings of intrahepatic biliary dilatation. IMPRESSION: Unremarkable examination.
[2023-06-04 11:29] LABS: Absolute Eosinophils 0.1 K/uL (0-0.5); Absolute Lymphocytes (CBC) 1.5 K/uL (0.7-4.9); Absolute Monocytes 0.7 K/uL (0.1-1.3); Basophils % 0.5 % (0-1.3); Eosinophils % 0.7 % (0-4.4); Hematocrit 47.1 % (39.6-49.0); Lymphocytes % 17.8 % (15.3-44.8); MCH 28.8 pg (27.0-35.0); MCHC 33.9 g/dL (32.0-36.0); MCV 84.9 fL (80-100); MPV 7.3 fL (7.6-11.3); Monocytes % 8.3 % (3.3-12.3); Neutrophils % 72.7 % (41.7-73.7); Nucleated Red Blood Cells % 0.1 % (0-0); Platelets 259 thou/uL (152-406); RBC Red Blood Cell Count 5.54 M/uL (4.33-5.43); Red Cell Distribution Width 13.8 % (12.1-15.2); Urine Bilirubin NEGATIVE (Negative); Urine Blood Negative (Negative); Urine Clarity Clear (Clear); Urine Color Colorless (Yellow); Urine Glucose NEGATIVE (Negative); Urine Ketones NEGATIVE (Negative); Urine Microscopic Reflex YN NO UMIC; Urine Nitrite NEGATIVE (Negative); Urine Protein NEGATIVE (Negative); Urine Urobilinogen Normal (Normal); Urine pH 7.5 (5.0-7.0)
[2023-06-04 11:47] LABS: Albumin 4.1 g/dL (3.4-5.0); Albumin/Globulin Ratio 1.2 (1.1-1.8); Anion Gap 10.8 mEq/L (5.0-15.0); Bilirubin Total 0.6 mg/dL (0.2-1.0); Globulin 3.3 g/dL (2.3-3.5); Potassium 3.8 mEq/L (3.5-5.1); Protein, Total 7.4 g/dL (6.4-8.2)
--- NOTE | 2023-06-04 15:53 | EDPHYS ---
Physician Documentation [facility] Name: Yobany Nava Age: 43 yrs Sex: Male : 1980 Arrival Date: 06/04/2023 Time: 10:00 Bed 11 Private MD: ED Physician Daryl Tolentino HPI: 06/03 10:28 This 43 yrs old Male presents to ER via Ambulatory with complaints of ec2 Abdominal Pain. 10:28 Patient arrives today for evaluation of upper abdominal pain. Patient reports history ec2 of gastritis, previous ulcer, previous hiatal hernia. Patient reports been having episodic pain for the past 4 days. Patient reports some associated nausea, decreased p.o. intake. Denies any specific alleviating or exacerbating factors. Reports no previous abdominal surgeries.. Historical: - Allergies: 10:12 No Known Allergies; ap3 - Home Meds: 10:12 omeprazole 40 mg Oral capsule,delayed release (e.c.) [Active]; amlodipine-valsartan ap3 oral [Active]; fluoxetine 10 mg Oral tablet [Active]; - PMHx: 10:12 Hypertension; ap3 - Immunization history:: Client reports having NOT received the Covid vaccine. - Social history:: Smoking status: Patient reports use of chewing tobacco. ROS: 10:29 Constitutional: as per hpi ec2 Exam: 10:28 Constitutional: GEN: NAD Head: atraumatic Eyes: EOMI Ears: External ears are ec2 normal. CV: regular rate LUNGS: no respiratory distress ABD: non-distended, soft, nontender, no guarding, not rigid SKIN: no evidence of rashes MSK: no evidence of trauma NEURO: moves all extremities equally Vital Signs: 10:10 BP 140 / 94; Pulse 84; Resp 17; Pulse Ox 100% ; Weight 104.33 kg; Height 6 ft. 1 in. ; ap3 Pain 0/10; 10:18 Temp 98.3(T); ap3 14:08 BP 114 / 80; Pulse 66; Resp 18; Temp 98.2(TE); Pulse Ox 98% ; Pain 0/10; kb3 10:10 Body Mass Index 30.34 (104.33 kg, 185.42 cm) ap3 10:10 Pain Scale: Adult ap3 14:08 Pain Scale: Adult kb3 Jorge Coma Score: 14:08 Eye Response: spontaneous(4). Motor Response: obeys commands(6). Verbal Response: kb3 oriented(5). Total: 15. MDM: 10:22 Patient medically screened. ec2 10:28 Data reviewed: vital signs. ED course: Patient arrives today for evaluation of upper ec2 abdominal pain. Examination remarkable for well-appearing nontoxic dividual with abdominal exam as above. Will obtain lab work, ultrasound, urine studies and treat the pain. Evaluate for cholelithiasis, possible ulcer, doubt appendicitis or kidney stone. . 11:40 ED course: cbc reassuring, urine non-infectious. u/s shows no evidence of acute ruq ec2 pathology . 11:48 ED course: metabolic profile reassuring, lipase wnl. . ec2 13:25 ED course: On reassessment patient with marked improvement in symptoms. Will discharge ec2 home and have follow-up with GI as planned. Return precautions given.. 06/03 10:27 Order name: CBC with Diff; Complete Time: 11:40 ec2 06/03 10:27 Order name: CMP; Complete Time: 11:48 ec2 06/03 10:27 Order name: Lipase; Complete Time: 11:48 ec2 06/03 10:27 Order name: Urinalysis w/ reflexes; Complete Time: 11:40 ec2 06/03 10:27 Order name: Abdomen Limited US; Complete Time: 11:40 ec2 06/03 10:27 Order name: IV Saline Lock; Complete Time: 11:23 ec2 06/03 10:27 Order name: Labs collected and sent; Complete Time: 11:23 ec2 Administered Medications: 12:40 Drug: NS 0.9% IV 1000 ml IV at 1 bolus Per protocol; 1000 mL bolus Route: IV; Rate: 1 kb3 bolus; Site: right antecubital; 14:06 Follow up: Response: No adverse reaction; IV Status: Completed infusion; IV Intake: kb3 1000ml 12:41 Drug: Ondansetron IVP 4 mg IVP once; over 2 minutes Route: IVP; Infused Over: 2 mins; kb3 Site: right antecubital; 14:06 Follow up: Response: No adverse reaction kb3 12:44 Drug: TORadol - Ketorolac IVP 15 mg IVP once Route: IVP; Site: right antecubital; kb3 14:06 Follow up: Response: No adverse reaction; Pain is decreased kb3 12:50 Drug: morphine IVP or IV 4 mg IVP once over 4 mins Route: IVP; Infused Over: 4 mins; kb3 Site: right antecubital; 14:06 Follow up: Response: No adverse reaction; Pain is decreased kb3 12:52 Drug: Famotidine IVP 20 mg IVP once; dilute with 10 mL 0.9% NaCl; give over 2 minutes kb3 Route: IVP; Infused Over: 2 mins; Site: right antecubital; 14:07 Follow up: Response: No adverse reaction kb3 Disposition Summary: 06/04/23 13:25 Discharge Ordered Notes: Location: Home ec2 Condition: Stable ec2 Diagnosis - Acute gastritis ec2 Followup: ec2 - With: Private Physician - When: - Reason: Re-evaluation by your physician Forms: - Medication Reconciliation Form ec2 - Thank You Letter ec2 - Antibiotic Education ec2 - Prescription Opioid Use ec2 - Patient Portal Instructions ec2 - Leadership Thank You Letter ec2 Signatures: Dispatcher [employer] Betsy Del Rio RN RN ap3 Lula West RN RN kb3 Daryl Tolentino MD MD ec2
--- NOTE | 2023-06-04 15:53 | ER ---
Nurse's Notes [facility] Name: Yobany Nava Age: 43 yrs Sex: Male : 1980 Arrival Date: 06/04/2023 Time: 10:00 Bed 11 Private MD: Diagnosis: Acute gastritis Presentation: 06/03 10:10 Chief complaint: Patient states: he has been having episodic mid upper abdominal pain ap3 since Saturday. patient rates the pain, when it happens, as a 9/10 on the pain scale. patient also reports nausea/vomiting and diarrhea. Coronavirus screen: At this time, the client does not indicate any symptoms associated with coronavirus-19. Ebola Screen: No symptoms or risks identified at this time. Initial Sepsis Screen: Does the patient meet any 2 criteria? No. Patient's initial sepsis screen is negative. Does the patient have a suspected source of infection? No. Patient's initial sepsis screen is negative. Risk Assessment: Do you want to hurt yourself or someone else? Patient reports no desire to harm self or others. Onset of symptoms was June 02, 2023. 10:10 Method Of Arrival: Ambulatory ap3 10:10 Acuity: CL 3 ap3 Triage Assessment: 10:13 General: Appears in no apparent distress. Behavior is calm, cooperative, appropriate ap3 for age. Pain: Complains of pain in epigastric area, right upper quadrant and left upper quadrant Pain currently is 0 out of 10 on a pain scale. at worst was 9 out of 10 on a pain scale. Pain began gradually, Is episodic. Neuro: Level of Consciousness is awake, alert, obeys commands, Oriented to person, place, time, situation, Appropriate for age. Cardiovascular: Patient's skin is warm and dry. Respiratory: Airway is patent Respiratory effort is even, unlabored, Respiratory pattern is regular, symmetrical. GI: Reports upper abdominal pain, diarrhea, nausea, vomiting. Historical: - Allergies: 10:12 No Known Allergies; ap3 - Home Meds: 10:12 omeprazole 40 mg Oral capsule,delayed release (e.c.) [Active]; amlodipine-valsartan ap3 oral [Active]; fluoxetine 10 mg Oral tablet [Active]; - PMHx: 10:12 Hypertension; ap3 - Immunization history:: Client reports having NOT received the Covid vaccine. - Social history:: Smoking status: Patient reports use of chewing tobacco. Screenin:14 Abuse screen: Denies threats or abuse. Nutritional screening: No deficits noted. ap3 Tuberculosis screening: No symptoms or risk factors identified. 14:09 [facility] ED Fall Risk Assessment (Adult) History of falling in the last 3 months, kb3 including since admission No falls in past 3 months (0 pts) Confusion or Disorientation No (0 pts) Intoxicated or Sedated No (0 pts) Impaired Gait No (0 pts) Mobility Assist Device Used No (0 pt) Altered Elimination No (0 pt) Score/Fall Risk Level 0 - 2 = Low Risk Oriented to surroundings, Maintained a safe environment, Educated pt \T\ family on fall prevention, incl call for assistance when getting out of bed, Assessed \T\ reinforced patient's understanding of fall precautions, Provided non-skid footwear, Used ambulatory aids as needed (educated on \T\ assisted with), Used gait belt as appropriate. Assessment: 12:45 General: Appears uncomfortable, Behavior is calm, cooperative. Pain: Complains of pain kb3 in abdomen. Neuro: No deficits noted. Neuro: Level of Consciousness is awake, alert, obeys commands, Oriented to person, place, time, situation, Speech is normal, Facial symmetry appears normal. Cardiovascular: No deficits noted. Cardiovascular: Capillary refill < 3 seconds Patient's skin is warm and dry. Respiratory: No deficits noted. Breath sounds are clear bilaterally. GI: Bowel sounds present X 4 quads. Abd is soft Abdomen is tender to palpation. : No deficits noted. No signs and/or symptoms were reported regarding the genitourinary system. EENT: No deficits noted. No signs and/or symptoms were reported regarding the EENT system. Derm: No deficits noted. No signs and/or symptoms reported regarding the dermatologic system. Musculoskeletal: No deficits noted. No signs and/or symptoms reported regarding the musculoskeletal system. Vital Signs: 10:10 BP 140 / 94; Pulse 84; Resp 17; Pulse Ox 100% ; Weight 104.33 kg; Height 6 ft. 1 in. ; ap3 Pain 0/10; 10:18 Temp 98.3(T); ap3 14:08 BP 114 / 80; Pulse 66; Resp 18; Temp 98.2(TE); Pulse Ox 98% ; Pain 0/10; kb3 10:10 Body Mass Index 30.34 (104.33 kg, 185.42 cm) ap3 10:10 Pain Scale: Adult ap3 14:08 Pain Scale: Adult kb3 Jorge Coma Score: 14:08 Eye Response: spontaneous(4). Motor Response: obeys commands(6). Verbal Response: kb3 oriented(5). Total: 15. ED Course: 10:01 Patient arrived in ED. rg4 10:01 Daryl Tolentino MD is Attending Physician. ec2 10:12 Triage completed. ap3 10:14 Arm band placed on right wrist. ap3 10:45 Abdomen Limited US In Process Unspecified. EDMS 11:21 Initial lab(s) drawn, by me, sent to lab. Urine collected: clean catch specimen, clear. ty Inserted saline lock: 20 gauge in right forearm, using aseptic technique. Blood collected. 12:13 Sandoval Brown, RN is Primary Nurse. tl4 14:09 Patient has correct armband on for positive identification. Bed in low position. Call kb3 light in reach. Side rails up X2. Adult w/ patient. Provided Education on: ED process. Door closed. Noise minimized. Lights dimmed. Moved to private room. Warm blanket given. 14:10 No provider procedures requiring assistance completed. IV discontinued, intact, kb3 bleeding controlled, No redness/swelling at site. Pressure dressing applied. Administered Medications: 12:40 Drug: NS 0.9% IV 1000 ml IV at 1 bolus Per protocol; 1000 mL bolus Route: IV; Rate: 1 kb3 bolus; Site: right antecubital; 14:06 Follow up: Response: No adverse reaction; IV Status: Completed infusion; IV Intake: kb3 1000ml 12:41 Drug: Ondansetron IVP 4 mg IVP once; over 2 minutes Route: IVP; Infused Over: 2 mins; kb3 Site: right antecubital; 14:06 Follow up: Response: No adverse reaction kb3 12:44 Drug: TORadol - Ketorolac IVP 15 mg IVP once Route: IVP; Site: right antecubital; kb3 14:06 Follow up: Response: No adverse reaction; Pain is decreased kb3 12:50 Drug: morphine IVP or IV 4 mg IVP once over 4 mins Route: IVP; Infused Over: 4 mins; kb3 Site: right antecubital; 14:06 Follow up: Response: No adverse reaction; Pain is decreased kb3 12:52 Drug: Famotidine IVP 20 mg IVP once; dilute with 10 mL 0.9% NaCl; give over 2 minutes kb3 Route: IVP; Infused Over: 2 mins; Site: right antecubital; 14:07 Follow up: Response: No adverse reaction kb3 Medication: 14:10 VIS not applicable for this client. kb3 Intake: 14:06 IV: 1000ml; Total: 1000ml. kb3 Outcome: 13:25 Discharge ordered by . ec2 14:09 Discharged to home ambulatory, kb3 14:09 Condition: stable 14:09 Discharge instructions given to patient, Instructed on discharge instructions, follow up and referral plans. medication usage, Demonstrated understanding of instructions, follow-up care, medications, 14:10 Patient left the ED. kb3 Signatures: Dispatcher [employer] Priscila Montoya rg4 Betsy Hauser RN RN ap3 Lula West RN RN kb3 Daryl Tolentino MD MD ec2 Sandoval Brown RN RN tl4 Mani Garvey
[2023-06-04 17:18] VITALS: BP 114/80; O2SAT 98
[2023-06-04 17:19] VITALS: TEMP 98.2
== END ==
LOC: ER 10:00
DX: K29.00 Acute gastritis without bleeding (principal); I10 Essential (primary) hypertension; F17.220 Nicotine dependence, chewing tobacco, uncomplicated; Z28.310 Unvaccinated for COVID-19
CPT/HCPCS: 85025; 36415; 81003; 83690; 80053; 76705; J2405; J7030

== ENCOUNTER 2024-05-18 03:20 | Emergency (ER) | payer BC ==
[2024-05-18 04:01] LABS: Absolute Eosinophils 0.1 K/uL (0-0.5); Absolute Lymphocytes (CBC) 1.9 K/uL (0.7-4.9); Absolute Monocytes 0.7 K/uL (0.1-1.3); Absolute Neutrophil 3.8 K/uL (1.8-8.0); Basophils % 0.7 % (0-1.3); Eosinophils % 1.5 % (0-4.4); Hematocrit 42.2 % (39.6-49.0); Hemoglobin 14.3 g/dL (13.6-17.9); Lymphocytes % 28.4 % (15.3-44.8); MCH 29.5 pg (27.0-35.0); MCHC 33.9 g/dL (32.0-36.0); MPV 7.3 fL (7.6-11.3); Monocytes % 10.8 % (3.3-12.3); Neutrophils % 58.6 % (41.7-73.7); Nucleated Red Blood Cells % 0.1 % (0-0); Platelets 274 thou/uL (152-406); RBC Red Blood Cell Count 4.85 M/uL (4.33-5.43); Red Cell Distribution Width 13.9 % (12.1-15.2)
[2024-05-18 04:13] LABS: Troponin High Sensitivity 5.5 pg/mL (<58.9)
[2024-05-18 05:07] LABS: Influenza A Ag Negative; Influenza B Ag Negative; SARS-CoV-2 Antigen Rapid Res Negative (Negative)
--- NOTE | 2024-05-18 05:15 | ER ---
Nurse's Notes [facility] Name: Yobany Nava Age: 44 yrs Sex: Male : 1980 Arrival Date: 05/18/2024 Time: 03:20 Bed DX1 Private MD: Diagnosis: Tremor, unspecified Presentation: 05/18 03:45 Chief complaint: Patient states: Yesterday started getting dizzy with uncontrollable vc1 shakes, worse this morning. Coronavirus screen: Client denies travel out of the [place] in the last 14 days. At this time, the client does not indicate any symptoms associated with coronavirus-19. Ebola Screen: Patient negative for fever greater than or equal to 101.5 degrees Fahrenheit, and additional compatible Ebola Virus Disease symptoms Patient denies exposure to infectious person. Patient denies travel to an Ebola-affected area in the 21 days before illness onset. No symptoms or risks identified at this time. Initial Sepsis Screen: Does the patient meet any 2 criteria? No. Patient's initial sepsis screen is negative. Does the patient have a suspected source of infection? No. Patient's initial sepsis screen is negative. Risk Assessment: Do you want to hurt yourself or someone else? Patient reports no desire to harm self or others. Onset of symptoms was May 17, 2024. 03:45 Method Of Arrival: Ambulatory vc1 03:45 Acuity: CL 3 vc1 Triage Assessment: 03:49 General: Appears in no apparent distress. uncomfortable, Behavior is cooperative. Pain: vc1 Denies pain. EENT: No deficits noted. No signs and/or symptoms were reported regarding the EENT system. Neuro: Level of Consciousness is awake, alert, obeys commands, Oriented to person, place, time, situation, Appropriate for age Reports "tremors". Neuro: Reports dizziness. Cardiovascular: Reports Capillary refill < 3 seconds Patient's skin is warm and dry. Respiratory: Airway is patent Respiratory effort is even, unlabored, Respiratory pattern is regular, symmetrical, Breath sounds are clear bilaterally. GI: No deficits noted. No signs and/or symptoms were reported involving the gastrointestinal system. : No deficits noted. No signs and/or symptoms were reported regarding the genitourinary system. Derm: Skin is intact, is healthy with good turgor, Skin is dry, Skin is normal, Skin temperature is warm. Musculoskeletal: Circulation, motion, and sensation intact. Range of motion: intact in all extremities. Historical: - Allergies: 03:47 Clindamycin; vc1 - Home Meds: 03:47 amlodipine-valsartan 5-160 mg oral tablet [Active]; vc1 - PMHx: 03:47 Hypertension; vc1 - PSHx: 03:47 None; vc1 - Immunization history:: Client reports having NOT received the Covid vaccine. Flu vaccine is not up to date. - Infectious Disease History:: Denies. - Social history:: Smoking status: Patient reports use of chewing tobacco. Patient denies any tobacco usage or history of. Screenin:49 [facility] ED Fall Risk Assessment (Adult) History of falling in the last 3 months, vc1 including since admission No falls in past 3 months (0 pts) Confusion or Disorientation No (0 pts) Intoxicated or Sedated No (0 pts) Impaired Gait No (0 pts) Mobility Assist Device Used No (0 pt) Altered Elimination No (0 pt) Score/Fall Risk Level 0 - 2 = Low Risk Oriented to surroundings, Maintained a safe environment, Educated pt \\T\\ family on fall prevention, incl call for assistance when getting out of bed, Hourly rounding (assess needs \\T\\ fall precautionary measures) done. Abuse screen: Denies threats or abuse. Nutritional screening: No deficits noted. Tuberculosis screening: No symptoms or risk factors identified. Assessment: 05:30 General: see triage assessment. vc1 Vital Signs: 03:45 BP 140 / 96; Pulse 72; Resp 16; Temp 96; Pulse Ox 97% ; Weight 97.52 kg; Height 6 ft. 1 vc1 in. ; Pain 0/10; 04:24 Temp 98; vc1 03:45 Body Mass Index 28.37 (97.52 kg, 185.42 cm) vc1 03:45 Pain Scale: Adult vc1 ED Course: 03:26 Patient arrived in ED. gm2 03:40 Lou Iraheta MD is Attending Physician. sp3 03:47 Triage completed. vc1 03:48 Arm band placed on right wrist. vc1 03:49 Patient has correct armband on for positive identification. Provided Education on: ekg. vc1 03:51 Inserted saline lock: 20 gauge in left antecubital area, using aseptic technique. Blood af3 collected. Flushed with 10 mL NS. 03:51 EKG done, by wheel alignment technician. af3 04:21 No provider procedures requiring assistance completed. IV discontinued, intact, vc1 bleeding controlled, No redness/swelling at site. Pressure dressing applied. 04:22 XRAY Chest (1 view) In Process Unspecified. EDMS 04:39 CT Head Brain wo Cont In Process Unspecified. EDMS 05:14 Rich Henriquez MD is Referral Physician. sp3 Administered Medications: No medications were administered Medication: 03:49 VIS not applicable for this client. vc1 Outcome: 05:15 Discharge ordered by MD. sp3 05:30 Discharged to home ambulatory, vc1 05:30 Condition: good 05:30 Discharge instructions given to patient, Instructed on discharge instructions, follow vc1 up and referral plans. Demonstrated understanding of instructions, follow-up care, 05:30 Patient left the ED. vc1 Signatures: Dispatcher [employer] EDNY Lou Iraheta MD MD sp3 Ro Reyes RN RN vc1 Denia Rodriguez gm2 Felicity Riggs af3 Corrections: (The following items were deleted from the chart) 05:30 04:21 Condition: good vc1 vc1 05:30 04:21 Discharged to home ambulatory, vc1 vc1 05:30 04:21 Discharge instructions given to patient, Instructed on discharge instructions, vc1 follow up and referral plans. medication usage, Demonstrated understanding of instructions, follow-up care, medications, Prescriptions given X 2, vc1
--- NOTE | 2024-05-18 05:15 | EDPHYS ---
Physician Documentation [facility] Name: Yobany Nava Age: 44 yrs Sex: Male : 1980 Arrival Date: 05/18/2024 Time: 03:20 Bed DX1 Private MD: ED Physician Lou Iraheta HPI: 05/18 04:21 This 44 yrs old Male presents to ER via Ambulatory with complaints of Dizziness, sp3 Tremors, High Blood Pressure, Numbness. 04:24 44-year-old male with history of hypertension presents to the ED with chief complaint sp3 tremors, rigors and feeling cold and hot with drenched sheets at home. He denies any known sick contacts, cancer history, lymphoma history, travel history, headache, neck pain, lymphadenopathy, chest pain, shortness of breath, abdominal pain, vomiting, diarrhea or any other signs or symptoms on ROS at this time.. Historical: - Allergies: 03:47 Clindamycin; vc1 - Home Meds: 03:47 amlodipine-valsartan 5-160 mg oral tablet [Active]; vc1 - PMHx: 03:47 Hypertension; vc1 - PSHx: 03:47 None; vc1 - Immunization history:: Client reports having NOT received the Covid vaccine. Flu vaccine is not up to date. - Infectious Disease History:: Denies. - Social history:: Smoking status: Patient reports use of chewing tobacco. Patient denies any tobacco usage or history of. ROS: 04:28 Eyes: Negative for injury, pain, redness, and discharge, ENT: Negative for injury, sp3 pain, and discharge, Neck: Negative for injury, pain, and swelling, Cardiovascular: Negative for chest pain, palpitations, and edema, Respiratory: Negative for shortness of breath, cough, wheezing, and pleuritic chest pain, Abdomen/GI: Negative for abdominal pain, nausea, vomiting, diarrhea, and constipation, Back: Negative for injury and pain, MS/Extremity: Negative for injury and deformity, Skin: Negative for injury, rash, and discoloration, Psych: Negative for depression, anxiety, suicide ideation, homicidal ideation, and hallucinations, Allergy/Immunology: Negative for hives, rash, and allergies, Endocrine: Negative for neck swelling, polydipsia, polyuria, polyphagia, and marked weight changes, Hematologic/Lymphatic: Negative for swollen nodes, abnormal bleeding, and unusual bruising, 04:28 All other systems are negative, Exam: 04:28 Constitutional: This is a well developed, well nourished patient who is awake, alert, sp3 and in no acute distress. Head/Face: Normocephalic, atraumatic. Eyes: Pupils equal round and reactive to light, extra-ocular motions intact. Lids and lashes normal. Conjunctiva and sclera are non-icteric and not injected. Cornea within normal limits. Periorbital areas with no swelling, redness, or edema. ENT: Nares patent. No nasal discharge, no septal abnormalities noted. External auditory canals are clear. Oropharynx with no redness, swelling, or masses, exudates, or evidence of obstruction, uvula midline. Mucous membranes moist. Neck: Trachea midline, no thyromegaly or masses palpated, and no cervical lymphadenopathy. Supple, full range of motion without nuchal rigidity, or vertebral point tenderness. No Meningismus. Chest/axilla: Normal chest wall appearance and motion. Nontender with no deformity. No lesions are appreciated. Cardiovascular: Regular rate and rhythm with a normal S1 and S2. No gallops, murmurs, or rubs. Normal PMI, no JVD. No pulse deficits. Respiratory: Lungs have equal breath sounds bilaterally, clear to auscultation and percussion. No rales, rhonchi or wheezes noted. No increased work of breathing, no retractions or nasal flaring. Abdomen/GI: Soft, non-tender, with normal bowel sounds. No distension or tympany. No guarding or rebound. No evidence of tenderness throughout. Back: No spinal tenderness. No costovertebral tenderness. Full range of motion. Skin: Warm, dry with normal turgor. Normal color with no rashes, no lesions, and no evidence of cellulitis. MS/ Extremity: Pulses equal, no cyanosis. Neurovascular intact. Full, normal range of motion. Psych: Awake, alert, with orientation to person, place and time. Behavior, mood, and affect are within normal limits. 04:28 Neuro: Normal neuroexam except for tremor versus rigor. Patient is afebrile., 05:13 ECG was reviewed by the Attending Physician. EKG demonstrates normal sinus rhythm at 73 sp3 bpm with normal intervals, normal QRS, normal axis, normal ST/T-segment's without evidence of acute ischemia. Vital Signs: 03:45 BP 140 / 96; Pulse 72; Resp 16; Temp 96; Pulse Ox 97% ; Weight 97.52 kg; Height 6 ft. 1 vc1 in. ; Pain 0/10; 04:24 Temp 98; vc1 03:45 Body Mass Index 28.37 (97.52 kg, 185.42 cm) vc1 03:45 Pain Scale: Adult vc1 MDM: 03:41 Medical Screening Exam initiated sp3 04:32 Data reviewed: vital signs, nurses notes, lab test result(s), EKG, radiologic studies. sp3 ED course: 44-year-old male with hypertension, tremors and headache. Differential diagnosis includes viral illness, febrile illness, intracranial pathology, among others. Workup include CT scan of the head, EKG, chest x-ray, labs, swabs and general supportive care. Vital signs are currently normal.. 05:14 ED course: Full workup negative including CT head. Will diagnosis as tremor with sp3 follow-up to neurology.. 05/18 03:44 Order name: Basic Metabolic Panel; Complete Time: 04:14 vc1 05/18 03:44 Order name: CBC with Diff; Complete Time: 04:14 vc1 05/18 03:44 Order name: Troponin HS; Complete Time: 04:14 vc1 05/18 04:21 Order name: COVID-19 Ag + Flu A+B Ag; Complete Time: 05:12 sp3 05/18 03:44 Order name: XRAY Chest (1 view) vc1 05/18 03:45 Order name: CT Head Brain wo Cont vc1 05/18 03:44 Order name: EKG; Complete Time: 03:45 vc1 05/18 03:44 Order name: EKG - Nurse/Tech; Complete Time: 03:51 vc1 05/18 03:44 Order name: IV Saline Lock; Complete Time: 03:51 vc1 05/18 03:44 Order name: Labs collected and sent; Complete Time: 03:51 vc1 05/18 03:44 Order name: O2 Per Protocol; Complete Time: 03:51 vc1 05/18 03:44 Order name: O2 Sat Monitoring; Complete Time: 03:51 1 05/18 04:21 Order name: Recheck Vital Signs; Complete Time: 04:24 sp3 Administered Medications: No medications were administered Disposition Summary: 05/18/24 05:15 Discharge Ordered Notes: Location: Home sp3 Condition: Stable sp3 Diagnosis - Tremor, unspecified sp3 Followup: sp3 - With: Private Physician - When: Upon discharge from the Emergency Department - Reason: Continuance of care Followup: sp3 - With: Rich Henriquez MD - When: Upon discharge from the Emergency Department - Reason: Continuance of care Discharge Instructions: - Discharge Summary Sheet sp3 - Tremor sp3 Forms: - Medication Reconciliation Form sp3 - Antibiotic Education sp3 - Prescription Opioid Use sp3 - Patient Portal Instructions sp3 - Leadership Thank You Letter sp3 - Work release form vc1 Signatures: Dispatcher [employer] EDMS Lou Iraheta MD MD sp3 Ro Reyes RN RN vc1 Corrections: (The following items were deleted from the chart) 03:45 03:45 Head Brain Wo [id number].RAD.BRZ ordered. EDMS EDMS
[2024-05-18 05:58] VITALS: BP 140/96; O2SAT 97
--- NOTE | 2024-05-18 05:58 | RAD REPORT ---
CLINICAL HISTORY: Chest pain. COMPARISON: None. TECHNIQUE: XR CHEST 1 VIEW 05/18/2024 3:44 AM NITROGEN OPERATOR FINDINGS: Cardiac silhouette is normal in size. Lungs are clear without consolidation, atelectasis, mass or matthew ma. There is no pleural effusion. There is no pneumothorax. There are no acute osseous findings. IMPRESSION: Clear lungs. Electronically signed by: Harsh Siu MD 05/18/2024 05:05 AM NITROGEN OPERATOR RP Due to temporary technical issues with the PACS/[employer] reporting system, reports are being prosper d by the in-house radiologist without review as a courtesy to ensure prompt reporting the interpreting radiologist is fully responsible for the content of the report. Transcribed Date/Time: 05/18/2024 5:58 AM
[2024-05-18 05:59] VITALS: TEMP 98
--- NOTE | 2024-05-18 06:00 | RAD REPORT ---
CLINICAL HISTORY: DIZZINESS COMPARISON: None. TECHNIQUE: CT HEAD WITHOUT IV CONTRAST on 05/18/2024 3:45 AM COTTON BREEDER This exam was performed according to our departmental dose-optimization program, which includes autom ated exposure control, adjustment of the mA and/or kV according to patient size and/or use of iterative reconstruction technique. FINDINGS: There is no acute hemorrhage, mass effect or midline shift. Michael-white differentiation is preserved. There is no hydrocephalus. There is no significant volume loss for age. The calvarium is intact. Orbits and globes are unremarkable. The paranasal sinuses are clear. Mastoid air cells are clear. IMPRESSION: No acute intracranial findings. Electronically signed by: Harsh Siu MD 05/18/2024 05:07 AM COTTON BREEDER RP Due to temporary technical issues with the PACS/[employer] reporting system, reports are being prosper d by the in-house radiologist without review as a courtesy to ensure prompt reporting the interpreting radiologist is fully responsible for the content of the report. Transcribed Date/Time: 05/18/2024 6:00 AM
--- NOTE | 2024-05-18 12:02 | EKG ---
Test Date: 2024-05-18 Test Time: 03:38:38 Rehabilitation Specialist: AF MEASUREMENT RESULTS: Intervals: Rate: 73 CA: 164 QRSD: 88 QT: 384 QTc: 423 [place]: P: 53 CA: 164 QRS: 37 T: 12 INTERPRETIVE STATEMENTS: Normal sinus rhythm Normal ECG Compared to ECG 05/09/2023 16:21:25 T-wave abnormality no longer present Electronically Signed On 05-18-24 12:01:27 PROGRAM ENGAGEMENT DIRECTOR by Chris Gilliland
== END 2024-05-18 05:30 | disposition home or self-care (01) ==
LOC: ER 03:20
DX: R25.1 Tremor, unspecified (principal); I10 Essential (primary) hypertension; F17.220 Nicotine dependence, chewing tobacco, uncomplicated; Z11.52 Encounter for screening for COVID-19
CPT/HCPCS: 36415; 70450; 71045; 80048; 84484; 85025; 87428; 93005; 99284